=== PATIENT | male | born 1970 | race Caucasian/White ===

== ENCOUNTER 2018-09-28 21:26 | Emergency (ER) | payer BC, OTHER ==
[~2018-09-28] VITALS: Ht 182.9 cm; Wt 74.8 kg
[~2018-09-28 21:26] MED LIST: Keflex500 MG PO; Norco 5-325 Ta1 EACH PO
[2018-09-28] MEDS ORDERED: ERGO400 PO (21:37)
[2018-09-28] MEDS ORDERED: Vitamin C100 M1 PO (21:37)
[2018-09-28] MEDS ORDERED: Norco 5-325 Ta1 EACH PO (22:28)
== END 2018-09-28 22:40 | disposition home or self-care (01) ==
LOC: ER 21:26
DX: S20.212A Contusion of left front wall of thorax, initial encounter (principal); Z88.5 Allergy status to narcotic agent; Z79.899 Other long term (current) drug therapy; W22.8XXA Striking against or struck by other objects, initial encounter
CPT/HCPCS: 71101; 99283-25; A9270-GY

== ENCOUNTER → 2021-01-27 | Outpatient (CLI) | payer BC, OTHER ==
[~2021-01-27] MED LIST changes: +ERGO400 PO; +Vitamin C100 M1 PO
== END | disposition home or self-care (01) ==
LOC: LAB 14:42 → LAB SHORT 14:42
DX: L57.0 Actinic keratosis (principal)
CPT/HCPCS: 88305

== ENCOUNTER → 2021-05-09 | Outpatient (CLI) | payer BC, OTHER | END | disposition home or self-care (01) | LOC: LAB SHORT 13:29 → LAB 13:29 | DX: N39.0 Urinary tract infection, site not specified (principal) | CPT/HCPCS: 87077; 87086; 87186 ==